=== PATIENT | female | born 1990 | race American Indian/Alaskan Native ===

== ENCOUNTER 2017-10-26 10:03 | Emergency (ER) | payer OTHER ==
[2017-10-26 10:19] VITALS: BMI 34.8
[2017-10-26 10:24] VITALS: RESP 18; O2SAT 100
[2017-10-26] MEDS ORDERED: Sodium Chloride 0.9% 1,000 ML IV STA (11:18)
[2017-10-26 11:22] LABS: URINE APPEARANCE CLEAR (CLEAR); URINE BILIRUBIN NEGATIVE (NEGATIVE); URINE BLOOD NEGATIVE (NEGATIVE); URINE COLOR YELLOW (YELLOW); URINE GLUCOSE (UA) NEGATIVE (NEGATIVE); URINE LEUKOCYTE ESTERASE NEGATIVE Leu/uL (NEGATIVE); URINE PROTEIN NEGATIVE mg/dL (<30 mg/dL); URINE UROBILINOGEN 0.2 E.U./dL (<1 E.U./dL)
[2017-10-26 11:23] LABS: HCG,QUALITATIVE URINE NEGATIVE (NEGATIVE)
[2017-10-26 11:40] LABS: BASO # 0.02 K/mm3 (0.0-2.0); BASO % 0.2 % (0.0-3.0); EOS # 0.2 (0.0-0.7); EOS % 1.9 % (1.5-5.0); GRAN # 7.9 (1.4-6.5); GRAN % 70.3 % (50.0-68.0); HEMOGLOBIN 11.9 g/dL (12.0-16.0); LYMPH # 2.4 (1.2-3.4); LYMPH % 21.6 % (22.0-35.0); MEAN CELL VOLUME 76.3 fl (80.0-105.0); MEAN CORPUSCULAR HEMOGLOBIN 24.5 pg (25.0-35.0); MEAN CORPUSCULAR HGB CONC 32.2 g/dl (31.0-37.0); MEAN PLATELET VOLUME 10.1 fl (7.0-11.0); MONO # 0.7 (0.1-0.6); RBC 4.85 10^6/uL (3.5-6.1); WHITE BLOOD COUNT 11.2 10^3/ul (4.5-11.0)
[2017-10-26 11:55] LABS: ALB/GLOB RATIO 1.4 (1.1-1.8); ALBUMIN 4.4 g/dL (3.0-4.8); ALT/SGPT 26 U/L (7-56); AST/SGOT 20 U/L (14-36); BLOOD UREA NITROGEN 12 mg/dL (7-21); GFR AFRICAN-AMERICAN > 60; GFR NON-AFRICAN AMERICAN > 60
--- NOTE | 2017-10-26 12:13 | CT ---
PROCEDURE: CT HEAD WITHOUT CONTRAST. HISTORY: headache COMPARISON: None available. TECHNIQUE: Axial computed tomography images were obtained through the head/brain without intravenous contrast. Radiation dose: Total exam DLP = 891 mGy-cm. This CT exam was performed using one or more of the following dose reduction techniques: Automated exposure control, adjustment of the mA and/or kV according to patient size, and/or use of iterative reconstruction technique. FINDINGS: HEMORRHAGE: No intracranial hemorrhage. BRAIN: No mass effect or edema. No atrophy or chronic microvascular ischemic changes. VENTRICLES: Unremarkable. No hydrocephalus. CALVARIUM: Unremarkable. PARANASAL SINUSES: Unremarkable as visualized. No significant inflammatory changes. MASTOID AIR CELLS: Unremarkable as visualized. No inflammatory changes. OTHER FINDINGS: None. IMPRESSION: No acute findings
--- NOTE | 2017-10-26 13:44 | ED PDOC ---
Arrival/HPI - General Chief Complaint: Dizziness/Lightheaded Time Seen by Provider: 10/26/17 11:18 - History of Present Illness Context: Home Past Medical History - Provider Review Nursing Documentation Reviewed: Yes - Infectious Disease Hx of Infectious Diseases: None - Tetanus Immunization Tetanus Immunization: Unknown - Cardiac Hx Hypertension: Yes (at age of 18 no longer takes meds) - Psychiatric Hx Depression: No Hx Emotional Abuse: No Hx Physical Abuse: No Hx Substance Use: No - Past Surgical History Past Surgical History: No Previous - Anesthesia Hx Anesthesia: No - Suicidal Assessment Feels Threatened In Home Enviroment: No Family/Social History - Physician Review Nursing Documentation Reviewed: Yes Family/Social History: No Known Family HX Smoking Status: Never Smoked Hx Alcohol Use: Yes Hx Substance Use: No Allergies/Home Meds Allergies/Adverse Reactions: Allergies No Known Allergies Allergy (Verified 01/03/13 04:28) Home Medications: Home Meds Medication Instructions Recorded Confirmed Losartan [Cozaar] 1 tab PO HS 10/26/17 10/26/17 Review of Systems - Review of Systems Constitutional: absent: Fevers, Night Sweats Eyes: absent: Vision Changes ENT: absent: Hearing Changes Respiratory: absent: SOB, Cough Cardiovascular: absent: Chest Pain Gastrointestinal: absent: Abdominal Pain Genitourinary Female: absent: Dysuria Musculoskeletal: absent: Arthralgias Skin: absent: Rash, Pruritis Neurological: Headache, Dizziness Endocrine: absent: Diaphoresis, Polyuria Hemo/Lymphatic: absent: Adenopathy Psychiatric: absent: Anxiety, Depression Physical Exam Vital Signs Reviewed: Yes Vital Signs Temp Pulse Resp BP Pulse Ox 10/26/17 10:23 98.7 F 79 18 121/76 100 Temperature: Afebrile Blood Pressure: Normal Pulse: Regular Respiratory Rate: Normal Appearance: Positive for: Well-Appearing, Non-Toxic, Comfortable Pain Distress: None Mental Status: Positive for: Alert and Oriented X 3 - Systems Exam Head: Present: Tenderness (Maxillary sinus tender to palpation), Other (No frontal sinus tenderness) Pupils: Present: PERRL Extroacular Muscles: Present: EOMI. No: Entrapment Conjunctiva: Present: Normal Ears: Present: Normal Mouth: Present: Moist Mucous Membranes Medical Decision Making - Lab Interpretations Lab Results: 10/26/17 11:36 10/26/17 11:36 Lab Results 10/26/17 11:36: WBC 11.2 H, RBC 4.85, Hgb 11.9 L, Hct 37.0, MCV 76.3 L, MCH 24.5 L, MCHC 32.2, RDW 16.0 H, Plt Count 267, MPV 10.1, Gran % 70.3 H, Lymph % ( Auto) 21.6 L, [place] % (Auto) 6.0, Eos % (Auto) 1.9, Baso % (Auto) 0.2, Gran # 7.90 H, Lymph # (Auto) 2.4, [place] # (Auto) 0.7 H, Eos # (Auto) 0.2, Baso # (Auto ) 0.02 10/26/17 11:36: Sodium 143, Potassium 4.3, Chloride 107, Carbon Dioxide 25, Anion Gap 15, BUN 12, Creatinine 0.8, Est GFR ( Amer) > 60, Est GFR (Non- Af Amer) > 60, Random Glucose 89, Calcium 9.0, Total Bilirubin 0.4, AST 20, ALT 26, Alkaline Phosphatase 49, Total Protein 7.5, Albumin 4.4, Globulin 3.1, Albumin/Globulin Ratio 1.4 10/26/17 11:16: Urine Color Yellow, Urine Appearance Clear, Urine pH 6.0, Ur Specific [place] 1.025, Urine Protein Negative, Urine Glucose (UA) Negative, Urine Ketones Negative, Urine Blood Negative, Urine Nitrate Negative, Urine Bilirubin Negative, Urine Urobilinogen 0.2, Ur Leukocyte Esterase Negative, Urine HCG, Qual Negative - RAD Interpretation Radiology Orders: 10/26/17 11:18 HEAD W/O CONTRAST [CT] Stat - Medication Orders Current Medication Orders: Discontinued Medications Acetaminophen (Tylenol 325mg Tab) 975 mg PO STAT STA Stop: 10/26/17 11:19 Last Admin: 10/26/17 11:35 Dose: 975 mg MAR Pain/Vitals Document 10/26/17 11:35 SRE (Rec: 10/26/17 11:36 SRE [id number]) Pain Reassessment Is This A Pain ReAssessment? Yes Sleep Is patient sleeping during reassessment? No Presence of Pain Presence of Pain Yes Pain Scale Used Pain Scale Used Numeric Location Pain Location Body Drilling Assistant Description Intermittent Scale Used Numeric Sodium Chloride (Sodium Chloride 0.9%) 1,000 mls @ 999 mls/hr IV .Q1H1M STA Stop: 10/26/17 12:18 Last Admin: 10/26/17 11:36 Dose: 999 mls/hr eMAR Start Stop Document 10/26/17 11:36 SRE (Rec: 10/26/17 11:37 SRE [id number]) Intravenous Solution Start Date 10/26/17 Start Time 11:37 End Date 10/26/17 End time 12:30 Total Infusion Time 53 Disposition/Present on Arrival - Present on Arrival History of DVT/PE: No History of Uncontrolled Diabetes: No Urinary Catheter: No History of Decub. Ulcer: No History Surgical Site Infection Following: None - Disposition Referrals: Chandu Jha MD [Primary Care Provider] - Follow up with primary
--- NOTE | 2017-10-26 13:53 | ED PDOC ---
Arrival/HPI - General Chief Complaint: Dizziness/Lightheaded Time Seen by Provider: 10/26/17 11:18 Historian: Patient - History of Present Illness Narrative History of Present Illness (Text): 10/26/17 11:20 Vale Samuel is a 27 year old female, whose past medical history includes hypertension, who presents to the emergency department complaining of headache and dizziness for the past 6 days. Patient states that she occasionally takes Advil for pain which which makes headache go away and resolves dizziness. Patient notes that she has not taken any pain medication for 2 days. Patient states that she has a history of headaches that is thought to be stress- related. Patient endorses that compliant to blood pressure medications. Patient denies any blurred vision, generalized weakness, fatigue, numbness, tingling in extremities, shortness of breath, chest pain, fevers, chills, URI symptoms, nasal congestion, or any other complaints at this time. Time/Duration: < week (6 days) Symptom Onset: Gradual Symptom Course: Unchanged Activities at Onset: Light Context: Home Past Medical History - Provider Review Nursing Documentation Reviewed: Yes - Travel History Have you recently traveled outside [place] w/in the past 3 mons?: No - Infectious Disease Hx of Infectious Diseases: None - Tetanus Immunization Tetanus Immunization: Unknown - Cardiac Hx Hypertension: Yes (at age of 18 no longer takes meds) - Psychiatric Hx Depression: No Hx Emotional Abuse: No Hx Physical Abuse: No Hx Substance Use: No - Past Surgical History Past Surgical History: No Previous - Anesthesia Hx Anesthesia: No - Suicidal Assessment Feels Threatened In Home Enviroment: No Family/Social History - Physician Review Nursing Documentation Reviewed: Yes Family/Social History: No Known Family HX Smoking Status: Never Smoked Hx Alcohol Use: Yes Hx Substance Use: No Allergies/Home Meds Allergies/Adverse Reactions: Allergies No Known Allergies Allergy (Verified 01/03/13 04:28) Home Medications: Home Meds Medication Instructions Recorded Confirmed Losartan [Cozaar] 1 tab PO HS 10/26/17 10/26/17 Review of Systems - Physician Review All systems were reviewed & negative as marked: Yes - Review of Systems Constitutional: absent: Fevers, Night Sweats Eyes: absent: Vision Changes ENT: absent: Hearing Changes Respiratory: absent: SOB, Cough Cardiovascular: absent: Chest Pain, Syncope Gastrointestinal: absent: Abdominal Pain Genitourinary Female: absent: Dysuria, Frequency Musculoskeletal: absent: Arthralgias, Back Pain Skin: absent: Rash, Pruritis Neurological: Headache, Dizziness. absent: Focal Weakness, Gait Changes, Speech Changes, Facial Droop, Disequilibrium, Seizure Endocrine: absent: Diaphoresis, Polyuria Hemo/Lymphatic: absent: Adenopathy Psychiatric: absent: Anxiety, Depression Physical Exam Vital Signs Reviewed: Yes Vital Signs Temp Pulse Resp BP Pulse Ox 10/26/17 13:59 98 F 95 H 18 155/75 H 100 10/26/17 13:57 98 F 95 H 155/75 H 100 10/26/17 10:23 98.7 F 79 18 121/76 100 Temperature: Afebrile Blood Pressure: Normal Pulse: Regular Respiratory Rate: Normal Appearance: Positive for: Well-Appearing, Non-Toxic, Comfortable Pain Distress: None Mental Status: Positive for: Alert and Oriented X 3 - Systems Exam Head: Present: Other (No frontal sinus tenderness). No: Tenderness (NO maxillary sinus tender to palpation) Pupils: Present: PERRL Extroacular Muscles: Present: EOMI Conjunctiva: Present: Normal Ears: Present: Normal (Bilaterally), NORMAL TM, Normal Canal. No: Erythema, TM Bulging Mouth: Present: Moist Mucous Membranes. No: Drooling, Trismus Pharnyx: Present: Normal Nose (External): Present: Atraumatic Nose (Internal): Present: Normal Inspection Neck: Present: Normal Range of Motion Respiratory/Chest: Present: Clear to Auscultation, Good Air Exchange. No: Respiratory Distress, Accessory Muscle Use Cardiovascular: Present: Regular Rate and Rhythm, Normal S1, S2. No: Murmurs Abdomen: No: Tenderness, Distention, Peritoneal Signs Upper Extremity: Present: Normal Inspection, Normal ROM, Neurovascularly Intact. No: Cyanosis, Edema Lower Extremity: Present: Normal Inspection, Normal ROM, Neurovascularly Intact. No: Edema Neurological: Present: GCS=15, Speech Normal, Motor Func Grossly Intact, Normal Sensory Function, Gait Normal, Other (ambulating with steady gait ) Skin: Present: Warm, Dry, Normal Color. No: Rashes Psychiatric: Present: Alert, Oriented x 3, Normal Insight, Normal Concentration Medical Decision Making ED Course and Treatment: 10/26/17 15:04 27yr old female with headache and dizziness x 1 week. cbc; wbc;11.2 cmp; wnl pt given tylenol for pain. EKG normal sinus rhythm at 85 bpm normal axis normal intervals no ST elevations head ct; FINDINGS: HEMORRHAGE: No intracranial hemorrhage. BRAIN: No mass effect or edema. No atrophy or chronic microvascular ischemic changes. VENTRICLES: Unremarkable. No hydrocephalus. CALVARIUM: Unremarkable. PARANASAL SINUSES: Unremarkable as visualized. No significant inflammatory changes. MASTOID AIR CELLS: Unremarkable as visualized. No inflammatory changes. OTHER FINDINGS: None. IMPRESSION: No acute findings pt reassessment; after Tylenol patient states the headache and dizziness has resolved. I discussed all results and after the patient and parent stressed the importance of follow-up with a primary care physician and neurologist within the next 2 days. Advised immediate return if symptoms worsen persist or if new concerning symptoms develop. I advised patient of elevated blood pressure and need for follow-up as soon as possible. Patient verbalizes understanding of discharge instructions and need for immediate followup. all aspects of this case were discussed the attending of record. Impression: Headache, dizziness resolved Tylenol every 4 hours as needed for pain Follow-up the primary care physician within the next 2 days Follow-up with the neurologist within the next 2 days Return if symptoms worsen persist or if new concerning symptoms develop - Lab Interpretations Lab Results: 10/26/17 11:36 10/26/17 11:36 Lab Results 10/26/17 11:36: WBC 11.2 H, RBC 4.85, Hgb 11.9 L, Hct 37.0, MCV 76.3 L, MCH 24.5 L, MCHC 32.2, RDW 16.0 H, Plt Count 267, MPV 10.1, Gran % 70.3 H, Lymph % ( Auto) 21.6 L, [place] % (Auto) 6.0, Eos % (Auto) 1.9, Baso % (Auto) 0.2, Gran # 7.90 H, Lymph # (Auto) 2.4, [place] # (Auto) 0.7 H, Eos # (Auto) 0.2, Baso # (Auto ) 0.02 10/26/17 11:36: Sodium 143, Potassium 4.3, Chloride 107, Carbon Dioxide 25, Anion Gap 15, BUN 12, Creatinine 0.8, Est GFR ( Amer) > 60, Est GFR (Non- Af Amer) > 60, Random Glucose 89, Calcium 9.0, Total Bilirubin 0.4, AST 20, ALT 26, Alkaline Phosphatase 49, Total Protein 7.5, Albumin 4.4, Globulin 3.1, Albumin/Globulin Ratio 1.4 10/26/17 11:16: Urine Color Yellow, Urine Appearance Clear, Urine pH 6.0, Ur Specific [place] 1.025, Urine Protein Negative, Urine Glucose (UA) Negative, Urine Ketones Negative, Urine Blood Negative, Urine Nitrate Negative, Urine Bilirubin Negative, Urine Urobilinogen 0.2, Ur Leukocyte Esterase Negative, Urine HCG, Qual Negative I have reviewed the lab results: Yes - RAD Interpretation Radiology Orders: 10/26/17 11:18 HEAD W/O CONTRAST [CT] Stat - Medication Orders Current Medication Orders: Discontinued Medications Acetaminophen (Tylenol 325mg Tab) 975 mg PO STAT STA Stop: 10/26/17 11:19 Last Admin: 10/26/17 11:35 Dose: 975 mg MAR Pain/Vitals Document 10/26/17 11:35 SRE (Rec: 10/26/17 11:36 SRE [id number]) Pain Reassessment Is This A Pain ReAssessment? Yes Sleep Is patient sleeping during reassessment? 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 I have reviewed the chart and agree that the record accurately reflects my personal performance of the history, physical exam, medical decision making, and the department course for this patient. I have also personally directed, reviewed, and agree with the discharge instructions and disposition. Disposition/Present on Arrival - Present on Arrival Any Indicators Present on Arrival: No History of DVT/PE: No History of Uncontrolled Diabetes: No Urinary Catheter: No History of Decub. Ulcer: No History Surgical Site Infection Following: None - Disposition Have Diagnosis and Disposition been Completed?: Yes Diagnosis: Headache, Dizziness Disposition: HOME/ ROUTINE Disposition Time: 13:30 Patient Plan: Discharge Condition: GOOD Discharge Instructions (ExitCare): Headache, Adult (DC) Additional Instructions: Tylenol every 4 hours as needed for pain Follow-up with primary care physician within the next 2 days Follow-up with a neurologist within the next 2 days Return immediately if symptoms worsen persist or if new concerning symptoms develop Referrals: Chandu Jha MD [Primary Care Provider] - Follow up with primary Jovani Faulkner MD [Staff Provider] - Follow up with primary [facility] [Outside] - [place] up with primary [facility] [place] - Follow up with primary Forms: [employer] (Latvian), WORK NOTE
[2017-10-26 13:58] VITALS: BP 155/75; PULSE 95; TEMP 98
--- NOTE | 2017-10-26 14:37 | CARD ---
APPROVED REPORT EKG Measurement Heart [id number] <Conclusion> Normal sinus rhythm Normal ECG
== END 2017-10-26 14:07 | disposition home or self-care (01) ==
LOC: ED 10:03
DX: R42 Dizziness and giddiness (principal); R51 Headache; I10 Essential (primary) hypertension
CPT/HCPCS: 70450; 80053; 81003; 84703; 85025; 93005; 96360; 99285; J7040

== ENCOUNTER 2018-01-09 17:26 | Emergency (ER) | payer OTHER ==
[2018-01-09 17:26] VITALS: BMI 34.8
[2018-01-09 17:32] VITALS: BP 134/84
--- NOTE | 2018-01-09 18:20 | ED PDOC ---
Arrival/HPI - General Chief Complaint: Lower Extremity Problem/Injury Time Seen by Provider: 01/09/18 17:26 Historian: Patient - History of Present Illness Narrative History of Present Illness (Text): 01/09/18 18:17 27yo morbidly obese female with no pmhx who present with complaint of right sided pelvic/hip pain that radiates to her distal medial thigh x months. Patient states pain is usually with ambulation. States she saw her PMD 2months ago for same pain and was told is a muscular pain from moving furnitures. States she continued to have the pain intermittently. Does not take any medication for the pain. Denies trauma, back pain, abdominal pain, urinary symptoms, saddle anesthesia, urinary/fecal incontinence, focal weakness, calf pain, any other complaint. Past Medical History - Provider Review Nursing Documentation Reviewed: Yes - Infectious Disease Hx of Infectious Diseases: None - Tetanus Immunization Tetanus Immunization: Unknown - Cardiac Hx Cardiac Disorders: Yes Hx Hypertension: Yes - Pulmonary Hx Respiratory Disorders: No - Neurological Hx Neurological Disorder: No - HEENT Hx HEENT Disorder: No - Renal Hx Renal Disorder: No - Endocrine/Metabolic Hx Endocrine Disorders: No - Hematological/Oncological Hx Blood Disorders: No - Integumentary Hx Dermatological Disorder: No - Musculoskeletal/Rheumatological Hx Musculoskeletal Disorders: No - Gastrointestinal Hx Gastrointestinal Disorders: No - Genitourinary/Gynecological Hx Genitourinary Disorders: No - Psychiatric Hx Psychophysiologic Disorder: No Hx Substance Use: No - Past Surgical History Past Surgical History: No Previous - Anesthesia Hx Anesthesia: No - Suicidal Assessment Feels Threatened In Home Enviroment: No Family/Social History - Physician Review Nursing Documentation Reviewed: Yes Family/Social History: Unknown Family HX Smoking Status: Never Smoked Hx Alcohol Use: Yes Hx Substance Use: No Allergies/Home Meds Allergies/Adverse Reactions: Allergies No Known Allergies Allergy (Verified 01/09/18 17:28) Home Medications: Home Meds Medication Instructions Recorded Confirmed Losartan [Cozaar] 1 tab PO HS 10/26/17 01/09/18 Review of Systems - Physician Review All systems were reviewed & negative as marked: Yes - Review of Systems Constitutional: Normal Eyes: Normal ENT: Normal Respiratory: Normal Cardiovascular: Normal Gastrointestinal: Normal Genitourinary Female: Normal Musculoskeletal: Arthralgias (Right hip/pelvic pain) Skin: Normal Neurological: Normal Endocrine: Normal Hemo/Lymphatic: Normal Psychiatric: Normal Physical Exam Vital Signs Reviewed: Yes Vital Signs Temp Pulse Resp BP Pulse Ox 01/09/18 19:27 98.2 F 80 18 99 01/09/18 17:28 98.3 F 90 16 134/84 100 Temperature: Afebrile Blood Pressure: Normal Pulse: Regular Respiratory Rate: Normal Appearance: Positive for: Well-Appearing, Non-Toxic, Comfortable Pain Distress: None Mental Status: Positive for: Alert and Oriented X 3 - Systems Exam Head: Present: Atraumatic, Normocephalic Pupils: Present: PERRL Extroacular Muscles: Present: EOMI Conjunctiva: Present: Normal Mouth: Present: Moist Mucous Membranes Neck: Present: Normal Range of Motion Respiratory/Chest: Present: Clear to Auscultation, Good Air Exchange. No: Respiratory Distress, Accessory Muscle Use Cardiovascular: Present: Regular Rate and Rhythm, Normal S1, S2. No: Murmurs Abdomen: No: Tenderness, Distention, Peritoneal Signs Back: Present: Normal Inspection Upper Extremity: Present: Normal Inspection. No: Cyanosis, Edema Lower Extremity: Present: Normal Inspection, NORMAL PULSES, Normal ROM, Neurovascularly Intact. No: Edema, Tenderness, Swelling, Deformity, Temperature Abnormalties Neurological: Present: GCS=15, CN II-XII Intact, Speech Normal Skin: Present: Warm, Dry, Normal Color. No: Rashes Psychiatric: Present: Alert, Oriented x 3, Normal Insight, Normal Concentration Medical Decision Making ED Course and Treatment: 01/10/18 01:15 Pt presented to ED with stated history. She notes that pain has been ongoing for months. She was ambulatory and NVI. Toradol was given for pain control. Hip/Pelvic xray IMPRESSION: No demonstrated fracture or dislocation. Result was DW with the pt and [facility] - RAD Interpretation Radiology Orders: 01/09/18 17:41 Hip Right [HIP MIN 2V W/ PELVIS RT] [RAD] Stat - Medication Orders Current Medication Orders: Discontinued Medications Ketorolac Tromethamine (Toradol) 60 mg IM STAT STA Stop: 01/09/18 17:43 Last Admin: 01/09/18 17:58 Dose: 60 mg MAR Pain Assessment Document 01/09/18 17:58 [email or web address] (Rec: 01/09/18 17:58 [email or web address] [id number]) Pain Reassessment Is this a pain reassessment? No Sleep Is patient sleeping during reassessment? No Presence of Pain Presence of Pain Yes Pain Scale Used Pain Scale Used Numeric Location Left, Right or Bilateral Right Pain Location Body Site Groin Description Description Constant Intensity of Pain at present 7 Pain Behavior Facial Grimacing Aggravating Factors Changing Position Alleviating Factors/Management Medication Techniques Alleviating Factors Medication IM Administration Charges Document 01/09/18 17:58 [email or web address] (Rec: 01/09/18 17:58 [email or web address] [id number]) Injection Site MAR Injection Site Right Gluteus Kole Charges for Administration # of IM Administrations 1 Disposition/Present on Arrival - Present on Arrival Any Indicators Present on Arrival: No History of DVT/PE: No History of Uncontrolled Diabetes: No Urinary Catheter: No History of Decub. Ulcer: No History Surgical Site Infection Following: None - Disposition Have Diagnosis and Disposition been Completed?: Yes Diagnosis: Hip pain Disposition: HOME/ ROUTINE Disposition Time: 18:40 Patient Plan: Discharge Condition: STABLE Discharge Instructions (ExitCare): Hip Pain (DC) Additional Instructions: Follow up with your Doctor Return to ED for any new or worsening symptoms Prescriptions: Naproxen [Naprosyn] 500 mg PO BID #20 tab Referrals: Chandu Jha MD [Primary Care Provider] - Follow up with primary Forms: [employer] (Greenlandic)
--- NOTE | 2018-01-09 18:29 | RAD ---
PROCEDURE: Right Hip Radiographs. HISTORY: right hip/pelvic pain COMPARISON: None. FINDINGS: BONES: No acute fracture. JOINTS: Normal. SOFT TISSUES: Normal. OTHER FINDINGS: None. IMPRESSION: No demonstrated fracture or dislocation.
[2018-01-09 19:28] VITALS: PULSE 80; RESP 18; TEMP 98.2; O2SAT 99
== END 2018-01-09 19:28 | disposition home or self-care (01) ==
LOC: ED 17:26
DX: M25.551 Pain in right hip (principal); E66.01 Morbid (severe) obesity due to excess calories; I10 Essential (primary) hypertension
CPT/HCPCS: 73502; 96372; 99282; J1885

== ENCOUNTER 2018-10-17 11:15 | Emergency (ER) | payer MEDICAID ==
[2018-10-17 11:15] VITALS: BMI 34.8
[2018-10-17 11:34] VITALS: RESP 18
--- NOTE | 2018-10-17 11:46 | ED PDOC ---
Arrival/HPI - General Chief Complaint: Upper Extremity Problem/Injury Time Seen by Provider: 10/17/18 11:31 Historian: Patient - History of Present Illness Narrative History of Present Illness (Text): 10/17/18 11:31 Nathaly Cartagena is a 28 year old female, with a past medical history of hypertension, who presents to the emergency department complaining of right wrist and hand pain and swelling this morning. Patient informs of similar symptoms to hands bilaterally 3 weeks ago s/p blood drawn from both hands. Patient denies left hand / wrist swelling or pain. Patient also denies blood work prior to current complaints. Patient denies trauma / injury, back pain, neck pain, chest pain, shortness of breath, headache, dizziness, fever, chills, nausea, vomiting, diarrhea, abdominal pain, or any other complaints. Time/Duration: 4-6 hours Symptom Onset: Sudden Symptom Course: Unchanged Activities at Onset: Light Context: Home Past Medical History - Provider Review Nursing Documentation Reviewed: Yes - Infectious Disease Hx of Infectious Diseases: None - Tetanus Immunization Tetanus Immunization: Unknown - Reproductive Menopause: No - Cardiac Hx Cardiac Disorders: Yes Hx Hypertension: Yes - Pulmonary Hx Respiratory Disorders: No - Neurological Hx Neurological Disorder: No - HEENT Hx HEENT Disorder: No - Renal Hx Renal Disorder: No - Endocrine/Metabolic Hx Endocrine Disorders: No - Hematological/Oncological Hx Blood Disorders: No - Integumentary Hx Dermatological Disorder: No - Musculoskeletal/Rheumatological Hx Musculoskeletal Disorders: No - Gastrointestinal Hx Gastrointestinal Disorders: No - Genitourinary/Gynecological Hx Genitourinary Disorders: No - Psychiatric Hx Psychophysiologic Disorder: No Hx Substance Use: No - Past Surgical History Past Surgical History: No Previous - Anesthesia Hx Anesthesia: No - Suicidal Assessment Feels Threatened In Home Enviroment: No Family/Social History - Physician Review Nursing Documentation Reviewed: Yes Family/Social History: Unknown Family HX Smoking Status: Never Smoked Hx Alcohol Use: Yes Hx Substance Use: No Allergies/Home Meds Allergies/Adverse Reactions: Allergies No Known Allergies Allergy (Verified 01/09/18 17:28) Home Medications: Home Meds Medication Instructions Recorded Confirmed Losartan [Cozaar] 1 tab PO HS 10/26/17 01/09/18 Review of Systems - Review of Systems Constitutional: absent: Fevers, Other Respiratory: absent: SOB Gastrointestinal: absent: Abdominal Pain, Diarrhea, Nausea, Vomiting Musculoskeletal: absent: Other (trauma / injury ) Neurological: absent: Headache, Dizziness Physical Exam Vital Signs Reviewed: Yes Vital Signs Temp Pulse Resp BP Pulse Ox 10/17/18 11:28 99.2 F 104 H 18 144/84 99 Temperature: Afebrile Blood Pressure: Normal Pulse: Regular Respiratory Rate: Normal Appearance: Positive for: Well-Appearing, Non-Toxic, Comfortable Pain Distress: None Mental Status: Positive for: Alert and Oriented X 3 - Systems Exam Head: Present: Atraumatic, Normocephalic Pupils: Present: PERRL Extroacular Muscles: Present: EOMI Conjunctiva: Present: Normal Mouth: Present: Moist Mucous Membranes Neck: Present: Normal Range of Motion Respiratory/Chest: Present: Clear to Auscultation, Good Air Exchange. No: Respiratory Distress, Accessory Muscle Use, Wheezes, Rales, Rhonchi Cardiovascular: Present: Regular Rate and Rhythm, Normal S1, S2. No: Murmurs, Rub, Gallop Abdomen: Present: Normal Bowel Sounds. No: Tenderness, Distention, Peritoneal Signs, Rebound, Guarding Back: Present: Normal Inspection Upper Extremity: Present: Normal ROM (able to move fingers on right hand but unable to make tight fist), NORMAL PULSES (+2 radial pulse), Tenderness (circumferentially around wrist), Swelling (right hand and right wrist), Neurovascularly Intact, Capillary Refill < 2s. No: Cyanosis, Edema, Other (no hand or finger tenderness) Lower Extremity: Present: Normal Inspection. No: Edema (no pitting edema) Neurological: Present: GCS=15, CN II-XII Intact, Speech Normal Skin: Present: Warm, Dry, Normal Color. No: Rashes Psychiatric: Present: Alert, Oriented x 3, Normal Insight, Normal Concentration Medical Decision Making ED Course and Treatment: 10/17/18 11:31 Impression: Nathaly Cartagena is a 28 year old female, with a past medical history of hypertension, who presents to the emergency department complaining of right hand and right wrist pain and swelling since this morning. Plan: -- Right Wrist 3V -- US Duplex Upper Extremities -- Reassess and disposition Prior Visits: Notes and results from previous visits were reviewed. Progress Notes: Right upper extremity venous duplex and right wrist XR performed, both negative. Advised outpatient followup with PMD. Patient neurovascularly intact in right arm/wrist/hand. - RAD Interpretation Radiology Orders: 10/17/18 11:40 WRIST, RIGHT 3 VIEWS [RAD] Stat DUPLEX UPPER EXTRM VEIN RIGHT [US] Stat - Scribe Statement The provider has reviewed the documentation as recorded by the Scribe Pierre Reis All medical record entries made by the Scribe were at my direction and personally dictated by me. I have reviewed the chart and agree that the record accurately reflects my personal performance of the history, physical exam, medical decision making, and the department course for this patient. I have also personally directed, reviewed, and agree with the discharge instructions and disposition. Disposition/Present on Arrival - Present on Arrival Any Indicators Present on Arrival: No History of DVT/PE: No History of Uncontrolled Diabetes: No Urinary Catheter: No History of Decub. Ulcer: No History Surgical Site Infection Following: None - Disposition Have Diagnosis and Disposition been Completed?: Yes Diagnosis: Pain and swelling of right wrist Disposition: HOME/ ROUTINE Disposition Time: 14:08 Condition: STABLE Discharge Instructions (ExitCare): Swollen Joints (DC) Additional Instructions: NATHALY CARTAGENA, thank you for letting us take care of you today. Your provider was Marian Duran MD and you were treated for swollen wrist ( right). The emergency medical care you received today was directed at your acute symptoms. If you were prescribed any medication, please fill it and take as directed. It may take several days for your symptoms to resolve. Return to the Emergency Department if your symptoms worsen, do not improve, or if you have any other problems. Please contact your doctor or call one of the physicians/clinics you have been referred to that are listed on the Patient Visit Information form that is included in your discharge packet. Bring any paperwork you were given at discharge with you along with any medications you are taking to your follow up visit. Our treatment cannot replace ongoing medical care by a primary care provider outside of the emergency department. Thank you for allowing the [facility] team to be part of your care today. If you had an X-Ray or CT scan: A Radiologist will review the ED reading if any change in treatment is needed we will contact you. If you had a blood, urine, or wound culture: It will take several days for the results, if any change in treatment is needed we will contact you. If you had an STI test: It will take 48 hours for the results. Please call after 1 week if you have not heard back. Referrals: FAMILY PROVIDER,NO [Primary Care Provider] - Follow up with primary Forms: [employer] (Greenlandic)
--- NOTE | 2018-10-17 12:52 | RAD ---
Date of service: 10/17/2018 PROCEDURE: Right Wrist Radiographs. HISTORY: R wrist pain/swelling COMPARISON: None. TECHNIQUE: 4 views obtained. FINDINGS: BONES: Normal. No fracture. JOINTS: Normal. No dislocation. SOFT TISSUES: Normal. OTHER FINDINGS: None. IMPRESSION: Normal right wrist radiographs.
--- NOTE | 2018-10-17 14:07 | US ---
PROCEDURE: Right upper extremity venous US CLINICAL HISTORY: Arm pain and swelling Evaluate for deep venous thrombosis. PHYSICIAN(S): Vick Marshall M.D FINDINGS: The visualized rightinternal jugular vein is sonographically normal and compressible. No evidence of obstruction or thrombus is seen. The visualized segments of the right subclavian vein are patent with normal waveforms. No sonographic evidence of obstruction or thrombosis is seen. The visualized deep venous system of the proximal right upper extremity is sonographically normal and compressible. IMPRESSION: 1. No sonographic evidence for deep venous thrombosis in the visualized segments of the right upper extremity.
[2018-10-17 14:08] VITALS: BP 137/84; PULSE 100; TEMP 99; O2SAT 100
== END 2018-10-17 14:09 | disposition home or self-care (01) ==
LOC: ED 11:15
DX: M25.531 Pain in right wrist (principal); M25.431 Effusion, right wrist; I10 Essential (primary) hypertension